=== PATIENT | male | born 1945 | race African-American/Black ===

== ENCOUNTER 2016-11-12 18:12 | Emergency (ER) | payer OTHER, MEDICAID ==
[~2016-11-12] VITALS: Ht 172.7 cm; Wt 77.1 kg
--- NOTE | 2016-11-12 18:25 | Emergency Room Report ---
History of Present Illness General Chief Complaint: Alcohol Intoxication Source: Patient, EMS Present Illness HPI Patient is a 73-year-old male who is brought in by EMS after increased agitation and altered mental status. Patient had reportedly been drinking heavily and an empty bottle of adelaida Walker was found nearby. Patient had the been noted to have a low blood sugar in the 50s by EMS. The patient was not able to take oral glucose due to poor cooperation Allergies: Coded Allergies: UNABLE TO ASSESS (Unverified , 11/12/16) Pt is ETOH Patient History Reviewed Nursing Documentation: PMH: Agreed, PSxH: Agreed Nursing Documentation-PMH Past Medical History Deferred: Pt Cognitively Impaired Review of Systems All Other Systems: limited - by poor cooperation Physical Exam Vital Signs Date Time Temp Pulse Resp B/P Pulse Ox O2 Delivery O2 Flow Rate FiO2 11/12/16 18:05 98.4 80 18 135/81 98 Room Air Sp02 EP Interpretation: reviewed, normal General Appearance: normal inspection, well appearing, no apparent distress, alert Head: atraumatic ENT: normal ENT inspection, hearing grossly normal, normal voice Neck: normal inspection, full range of motion, supple, no bony tend Respiratory: normal inspection, lungs clear, normal breath sounds, no respiratory distress, no retraction, no wheezing Cardiovascular #1: regular rate, rhythm, no edema Gastrointestinal: normal inspection, normal bowel sounds, non tender, soft, no guarding, no hernia Genitourinary: no CVA tenderness Musculoskeletal: normal inspection, back normal, normal range of motion Neurologic: normal inspection, alert, responsive, speech normal Psychiatric: normal inspection, judgement/insight normal, mood/affect normal Skin: normal inspection, normal color, no rash Medical Decision Making Diagnostic Impression: Primary Impression: Acute alcoholic intoxication Additional Impression: Pneumonia ER Course Patient presented for altered mental status. Differential diagnosis included but was not limited to ischemic stroke, subarachnoid hemorrhage, hypoglycemia, spinal cord injury, neurodegenerative disorder, urinary tract infection, hypoxemia. Patient was given IV antibiotics. A chest x-ray one view interpreted by me showed a left-sided infiltrate with small to moderate effusion normal cardiac size. The patient was noted to have a gradual improvement in mental status. The patient subsequently stated that he did not want to remain in the hospital despite the risk of worsening infection. The patient was advised risk benefits alternatives of leaving AGAINST MEDICAL ADVICE and he indicated understanding and all questions are answered patient still continued want to leave and signed AGAINST MEDICAL ADVICE. Despite risks including but not limited to disability and worsening of current lifestyle. Labs Test 11/12/16 18:42 11/12/16 19:30 11/12/16 21:47 White Blood Count 16.8 K/UL (4.8-10.8) Red Blood Count 4.28 M/UL (4.70-6.10) Hemoglobin 15.0 G/DL (14.2-18.0) Hematocrit 42.8 % (42.0-52.0) Mean Corpuscular Volume 100 FL (80-99) Mean Corpuscular Hemoglobin 35.1 PG (27.0-31.0) Mean Corpuscular Hemoglobin Concent 35.1 G/DL (32.0-36.0) Red Cell Distribution Width 12.2 % (11.6-14.8) Platelet Count 182 K/UL (150-450) Mean Platelet Volume 6.7 FL (6.5-10.1) Neutrophils (%) (Auto) 81.2 % (45.0-75.0) Lymphocytes (%) (Auto) 14.7 % (20.0-45.0) Monocytes (%) (Auto) 3.1 % (1.0-10.0) Eosinophils (%) (Auto) 0.3 % (0.0-3.0) Basophils (%) (Auto) 0.7 % (0.0-2.0) Sodium Level 146 mEQ/L (135-145) Potassium Level 3.8 mEQ/L (3.4-4.9) Chloride Level 101 mEQ/L (98-107) Carbon Dioxide Level 18 mEQ/L (20-30) Anion Gap 27 (5-15) Blood Urea Nitrogen 21 mg/dL (7-23) Creatinine 1.4 mg/dL (0.7-1.2) Estimat Glomerular Filtration Rate mL/min (>60) Glucose Level 74 mg/dL (74-106) Calcium Level 8.9 mg/dL (8.6-10.2) Last Vital Signs Date Time Temp Pulse Resp B/P Pulse Ox O2 Delivery O2 Flow Rate FiO2 11/12/16 18:05 98.4 80 18 135/81 98 Room Air Status: improved Disposition: AGAINST MEDICAL ADVICE Condition: Serious Joni Steiner November 12, 2016 18:25
[2016-11-12 18:58] LABS: BASOPHILS % (AUTO) 0.7 % (0.0-2.0); EOSINOPHILS % (AUTO) 0.3 % (0.0-3.0); LYMPHOCYTES % (AUTO) 14.7 % (20.0-45.0); MEAN CORPUSCULAR HEMOGLOBIN 35.1 PG (27.0-31.0); MEAN CORPUSCULAR HGB CONC 35.1 G/DL (32.0-36.0); MEAN CORPUSCULAR VOLUME 100 FL (80-99); MEAN PLATELET VOLUME 6.7 FL (6.5-10.1); MONOCYTES % (AUTO) 3.1 % (1.0-10.0); NEUTROPHILS % (AUTO) 81.2 % (45.0-75.0); PLATELET COUNT 182 K/UL (150-450); RED BLOOD COUNT 4.28 M/UL (4.70-6.10); RED CELL DISTRIBUTION WIDTH 12.2 % (11.6-14.8); WHITE BLOOD COUNT 16.8 K/UL (4.8-10.8)
[2016-11-12 19:18] VITALS: BP 135/81
[2016-11-12 20:18] LABS: ANION GAP 27 (5-15); CALCIUM 8.9 mg/dL (8.6-10.2); CARBON DIOXIDE 18 mEQ/L (20-30); CHLORIDE 101 mEQ/L (98-107); CREATININE 1.4 mg/dL (0.7-1.2); HEMOLYSIS 5; POTASSIUM 3.8 mEQ/L (3.4-4.9); SODIUM 146 mEQ/L (135-145)
[2016-11-12] MEDS ORDERED: cefTRIAXone 1 GM in NS 55 ML IVPB ONE (21:15)
[2016-11-12 22:00] VITALS: BP_SYST 134; BP_SYST 34; BP_DIAS 76
[2016-11-12 22:40] VITALS: BP 34/76
[2016-11-12 22:41] LABS: APPEARANCE,URINE CLEAR; KETONES,URINE NEGATIVE (NEGATIVE); LEUKOCYTE ESTERASE ,URINE NEGATIVE (NEGATIVE); NITRITE,URINE NEGATIVE (NEGATIVE); PH,URINE 5 (4.5-8.0); PROTEIN,URINE NEGATIVE (NEGATIVE); UROBILINOGEN,URINE NORMAL MG/DL (0.0-1.0)
[2016-11-12 22:53] LABS: AMORPHOUS SEDIMENT,UR FEW /LPF; RBC,URINE 0-2 /HPF (0 - 0); WBC,URINE 0 /HPF (0 - 0)
--- NOTE | 2016-11-13 10:03 | Diagnostic Imaging Report ---
Indications: Altered mental status Technique: Continuous helical CT imaging of the brain was performed with nonionic exposure control on a Siemens sensation [address] scanner. Axial and coronal images were reconstructed at 5 mm slice thickness and interval. CTDI volume(s): 70 mGy Total DLP: 1428 mGy-cm Findings: Comparison: None Confluent low attenuation is present in the bilateral periventricular white matter. Ventricles, cisterns, and sulci are diffusely prominent. No evidence of mass or hemorrhage, mass effect, midline shift, hydrocephalus, or increased intracranial pressure. Bone window images are unremarkable. Visualized paranasal sinuses and mastoid air cells are clear. Curvilinear calcific versus metallic density is present in the left optic globe in expected region of lens, latter otherwise not demonstrated. IMPRESSION: No evidence of acute intracranial pathology Bilateral cerebral periventricular white matter low attenuation, nonspecific, likely chronic microvascular ischemic in nature. Atrophy Nonspecific calcification versus metallic density in region of lens of left optic globe, nonspecific. Written preliminary report placed in PACS 11/12/[address] scanner at [facility] is accredited by the [employer] and the scans are performed using protocols designed to limit radiation exposure to as low as reasonably achievable to attain images of sufficient resolution adequate for diagnostic evaluation.
--- NOTE | 2016-11-13 10:36 | Diagnostic Imaging Report ---
Indications: Shortness of breath Technique: Portable AP chest Findings: Comparison: None Left hemidiaphragm is elevated. Left costophrenic angle is blunted. Linear densities are present in the overlying left lung base. Right lung and pleura relatively clear. Cardiac silhouette partially obscured, may be enlarged. Mild pulmonary vascular redistribution suggested. IMPRESSION: Elevation of left hemidiaphragm with overlying subsegmental atelectasis, nonspecific, acuity indeterminate Left pleural effusion, nonspecific Cardiomegaly not excludable. Suggestion of associated pulmonary venous hypertension. Upright PA and lateral chest radiographs with better inspiratory effort and optimal technique recommended for more complete evaluation.
== END 2016-11-12 22:40 | disposition left against medical advice (07) ==
LOC: ENRESERVDT → ENRESERVTM → EDBD 18:12 → EMR 20:11 → EDBD 20:11 → EMR 22:40
DX: F10.129 Alcohol abuse with intoxication, unspecified (principal); J18.9 Pneumonia, unspecified organism; R41.82 Altered mental status, unspecified
CPT/HCPCS: 36415; 70450; 71010; 80048; 81001; 85025; 87040; 96374; 99284; J0696